=== PATIENT | female | born 1965 | race Caucasian/White ===

== ENCOUNTER → 2017-05-20 | Outpatient (CLI) | payer OTHER ==
[~2017-05-20] MED LIST: SYNT88TA; TYLENOL #3; VICO5TAB; VOLT75TA
== END ==
LOC: M WHC 15:27
PROVIDERS: ATTEND Internal Medicine
DX: Z12.39 Encounter for other screening for malignant neoplasm of breast (principal)

== ENCOUNTER → 2021-03-22 | Outpatient (CLI) | payer OTHER ==
--- NOTE | 2021-03-22 14:35 | REP ---
INDICATION: PAIN COMPARISON: None TECHNIQUE: Five views FINDINGS: The compartments are symmetric and relatively well maintained. There is no acute fracture or destructive osseous lesion. IMPRESSION: Within normal limits <Electronically signed by Julio Ruiz > 03/22/21 1612
== END ==
LOC: M WUC 14:17
PROVIDERS: ATTEND Physician Assistant
DX: M25.561 Pain in right knee (principal)

== ENCOUNTER 2022-04-22 01:39 | Emergency (ER) | payer OTHER ==
[~2022-04-22] VITALS: Ht 152.4 cm; Wt 71.3 kg
[2022-04-22 01:39] VITALS: BP 190/94
== END 2022-04-22 02:18 | disposition left against medical advice (07) ==
LOC: M ED 01:39
DX: Z53.21 Procedure and treatment not carried out due to patient leaving prior to being seen by health care provider (principal)

== ENCOUNTER → 2022-04-24 | Outpatient (CLI) | payer OTHER | LOC: M RAD 11:56 | PROVIDERS: ATTEND Registered Nurse | DX: M54.50 Low back pain, unspecified (principal); R10.84 Generalized abdominal pain ==

== ENCOUNTER → 2024-03-05 | Outpatient (REF) | payer OTHER | LOC: M LAB REF 17:08 | PROVIDERS: ATTEND Internal Medicine | DX: N39.0 Urinary tract infection, site not specified (principal) ==

== ENCOUNTER → 2025-03-22 | Outpatient (CLI) | payer OTHER | LOC: M PLAIMG 09:15 | PROVIDERS: ATTEND Internal Medicine | DX: M25.552 Pain in left hip (principal) ==